=== PATIENT | male | born 1995 | race Caucasian/White ===

== ENCOUNTER → 2017-05-03 | Outpatient (CLI) | payer OTHER, BC ==
[~2017-05-03] MED LIST: IOPAMIDOL 76% 75 ML INFUS BTL 75 ML ONE
--- NOTE | 2017-05-03 14:20 | RADIOLOGY IMAGING REPORT ---
[place] [facility] [place] NAME[place] Ildefonso Weeks : 1995 MR: [id number] V: [id number] EXAM DATE: ORDERING PHYSICIAN: NANCY CHACON TECHNOLOGIST: Location: [facility] Patient: Ildefonso Weeks : 1995 Visit/Account:[id number] Date of Sevice: 05/03/2017 EXAMINATION: CT neck with IV contrast HISTORY: Neck pain. TECHNIQUE: Spiral scan was obtained from the hard palate through the upper chest during injection o f nonionic iodinated intravenous contrast. Sagittal and coronal reformatted images are also submitte d. One of the following dose optimization techniques was utilized in the performance of this exam: Autom ated exposure control; adjustment of the mA and/or kV according to the patient's size; or use of an i terative reconstruction technique. Specific details can be referenced in the facility's radiology C T exam operational policy. CONTRAST: 75 mL of IV [id number] COMPARISON: None. FINDINGS: Masses/lesions: Enlarged tonsils, right greater than left. At the inferior aspect of the right tonsi l there is a 1.4 x 1.3 x 1.0 cm hypodensity which may represent a small abscess (series 2, image 36; series 4, image 40; series 5, image 36). Enlarged bilateral lateral retropharyngeal lymph nodes, left greater than right, measuring up to 2.1 x 1.9 cm. Enlarged jugular chain lymph nodes, right greater than left, measuring up to 2.6 x 2.1 cm on the right. Mild thickening of the right pharyngeal wall. N o significant airway narrowing. Airway: Otherwise negative. Vessels: Negative. Musculoskeletal / Body wall: Negative. Lymph node assessment: Negative. Visualized orbits / brain / paranasal sinuses: Negative. Upper chest: Negative. IMPRESSION: Enlarged tonsils, right greater than left, with pharyngeal wall thickening and enlarged bilateral jug ular chain and retropharyngeal lymph nodes. Findings are consistent with tonsillitis, pharyngitis, an d reactive lymphadenopathy. At the inferior aspect of the right tonsil there is a 1.4 x 1.3 x 1.0 cm hypodensity which may represent a small abscess (series 2, image 36; series 4, image 40; series 5, im age 38). There is focal hypodensity is very close to the inferior surface of the tonsil and may alrea dy be draining into the airway. Report Dictated By: Will Mckeon MD at 05/03/2017 2:01 PM Report E-Signed By: Will Mckeon MD at 05/03/2017 2:16 PM WSN:[id number]
== END ==
LOC: CT 13:01
PROVIDERS: ATTEND Nurse Practitioner Family
DX: J36 Peritonsillar abscess (principal)
CPT/HCPCS: 70491; Q9967